=== PATIENT | female | born 1990 | race Caucasian/White ===

== ENCOUNTER 2018-09-09 22:40 | Emergency (ER) | payer MEDICAID, OTHER ==
[~2018-09-09] VITALS: Ht 167.6 cm; Wt 72.6 kg
[2018-09-09] MEDS: SODIUM CHLORIDE 0.9% 2,200 ML IV ONE (23:45)
[2018-09-09 23:50] LABS: BUN/Creatinine Ratio 27.3; Calcium 7.6 mg/dL (8.5-10.1); Potassium 4.3 mmol/L (3.5-5.1)
[2018-09-09 23:52] LABS: Basophils # (auto) 0.3 uL; Basophils % (auto) 2.5 % (0.0-2.0); Eosinophils # (auto) 0 uL; Eosinophils % (auto) 0.1 % (0.0-7.0); Hemoglobin 14.9 g/dL (12.2-16.2); Lymphocytes # (auto) 0.5 uL; Lymphocytes % (auto) 4.8 % (10.0-50.0); Mean Corpuscular Hemoglobin 32.3 pg (28.0-32.0); Mean Corpuscular Hgb Conc. 33.1 g/dL (32.0-36.0); Mean Corpuscular Volume 97.5 fL (80.0-100.0); Monocytes # (auto) 0.2 uL; Monocytes % (auto) 1.6 % (0.0-12.0); Neutrophils # (auto) 9.3 uL; Nucleated Red Blood Cells % 0.1 %; Platelet Count (auto) 130 10^3/uL (140-450); Red Blood Cells 4.61 10^6/uL (4.0-5.20); Red Cell Distribution Width 13.3 % (11.8-14.3); White Blood Cell 10.3 10^3/uL (4.4-10.8)
[2018-09-09 23:53] LABS: Bilirubin, Total 1.1 mg/dL (0.2-1.0); Total Protein 7.4 g/dL (6.4-8.2)
[2018-09-10] MEDS: ONDANSETRON HCL 4 MG/2 ML VIAL ONE (00:23)
[2018-09-10] MEDS: ONDANSETRON HCL 4 MG/2 ML VIAL IV ONE ×2 (00:30→02:20)
[2018-09-10] MEDS: metroNIDAZOLE 500MG/100ML 100 ML IV ONE (01:00)
[2018-09-10] MEDS: cefTRIAXone 1GM/50ML D5W 50 ML IV ONE (01:00)
[2018-09-10 01:45] VITALS: BP 112/74
[2018-09-10] MEDS ORDERED: HYDROmorphone HCL 2 MG/ML VL IM ONE (01:45)
[2018-09-10] MEDS: HYDROmorphone HCL 2 MG/ML VL IV ONE (02:19)
[2018-09-10 02:21] LABS: Urine Bacteria MANY /hpf (None Seen); Urine Blood 2+ /uL (Negative); Urine Specific Gravity 1.016 (1.001-1.035); Urine WBC 17 /hpf (0 - 5)
[2018-09-10 02:29] LABS: Alcohol, Urine < 3.0 mg/dL (0-5); Amphetamine Screen, Urine NEGATIVE (NEGATIVE); Barbiturate Scree,Urine NEGATIVE (NEGATIVE); Benzodiazephine Screen, Urine NEGATIVE (NEGATIVE); Cannabinoid Screen, Urine NEGATIVE (NEGATIVE); Cocaine Screen, Urine NEGATIVE (NEGATIVE); Opiate Scree,Urine NEGATIVE (NEGATIVE); Phencyclidine Screen, Urine NEGATIVE (NEGATIVE)
== END 2018-09-10 02:20 | disposition home or self-care (01) ==
LOC: EDBD 22:40 → ER 22:46
DX: K52.9 Noninfective gastroenteritis and colitis, unspecified (principal); K59.00 Constipation, unspecified
CPT/HCPCS: 36415; 74176; 80053; 80307; 81001; 81025; 82150; 83690; 84702; 85025; 96361; 96365; 96368; 96375; 96376; 99284; J0696; J1170; J2405; J3490; J7030; J7050